=== PATIENT | male | born 1970 | race Caucasian/White ===

== ENCOUNTER → 2017-10-12 | Outpatient (CLI) | payer OTHER ==
[~2017-10-12] MED LIST: ADVIL200 M2 PO; AMITRIPTYLINE H25 M2 GT; AMOXICILLIN125 MG PO; AVAPRO 150 MG150 M1 PO; CARISOPRODOL 3350 MG PO; HYDROCHLOROTH12.5 MG PO; HYDROCHLOROTHIA50 MG PO; LISINOPRIL20 MG PO; LYRICA100 MG PO; METHADONE HCL 110 M1 PO; MOBIC15 MG PO; MOBIC7.5 MG PO; NAPROSYN500 MG PO; NEURONTIN 300300 M1 PO; NOHOMEMEDICATIONS; NORCO 5-325 TA1 EACH PO; NORCO 7.5-3251 EACH PO; NORFLEX100 MG PO; OXYCODONE-ACET1 EAC2 PO; OXYCONTIN10 MG PO; PENICILLIN V P500 MG PO; PENICILLIN VK500 MG PO; PERCOCET 10-321 EACH PO; PERCOCET 5-3251 EACH; PERCOCET 5-3251 EACH PO; ROBAXIN 750 MG750 M1 PO; ROBAXIN 750 MG750 MG PO; TRAMADOL 50 MG50 MG; TYLENOL PM PO; ULTRAM 50MG TAB50 MG PO; VALIUM5 MG PO
== END ==
LOC: RAD 10:48
DX: S92.311A Displaced fracture of first metatarsal bone, right foot, initial encounter for closed fracture (principal); S92.321A Displaced fracture of second metatarsal bone, right foot, initial encounter for closed fracture; M24.674 Ankylosis, right foot; M24.675 Ankylosis, left foot; X58.XXXA Exposure to other specified factors, initial encounter; Y93.89 Activity, other specified; Y92.89 Other specified places as the place of occurrence of the external cause; Y99.8 Other external cause status

== ENCOUNTER 2019-03-22 18:33 | Emergency (ER) | payer OTHER ==
[~2019-03-22] VITALS: Ht 177.8 cm; Wt 95.3 kg
[2019-03-22 19:15] VITALS: BP 150/104
[2019-03-22 19:32] LABS: ABSOLUTE NEUTROPHILS 3.1 thou/uL (1.4-8.2); BASOPHILS 0.6 % (0.0-2.0); HEMATOCRIT 42.9 % (42.0-52.0); HEMOGLOBIN 14.8 gm/dL (14.0-18.0); LYMPHOCYTES 23.7 % (24.0-44.0); MCHC 34.5 g/dL (28.0-37.0); MCV 92.8 fL (80.0-100.0); MONOCYTES 8.2 % (1.0-8.0); PLATELET COUNT 197 thou/uL (150-400); POLYS 63.5 % (36.0-66.0); RBC 4.62 mil/uL (4.50-6.00); RDW 13.8 % (10.5-14.5); WBC 4.8 thou/uL (4.0-11.0)
[2019-03-22 19:41] LABS: ANION GAP 10 mmol/L (7-16); BUN 18 mg/dL (7-18); CALCIUM 8.9 mg/dL (8.5-10.1); CHLORIDE 104 mmol/L (98-107); CO2 27 mmol/L (21-32); CREATININE 1.2 mg/dL (0.7-1.3); GLUCOSE 138 mg/dL (74-106); SODIUM 141 mmol/L (136-145)
[2019-03-22 19:50] LABS: TROPONIN-I <0.06 ng/mL (<0.06)
--- NOTE | 2019-03-23 08:21 | EKG ---
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: BALJIT : 1970 Requested By: Pablo Gleason Order Number: [id number] MD: Colin Riggs Measurements Intervals [place] Rate: 70 P: 47 MI: 160 QRS: 24 QRSD: 107 T: 34 QT: 431 QTc: 466 Interpretive Statements Sinus rhythm Normal tracing Compared to ECG 03/18/2009 23:03:05 Sinus tachycardia no longer present Electronically Signed On 03-23-2019 8:21:08 CDT by Colin Riggs [email or web address] ��������������������������������������������� <ELECTRONICALLY SIGNED> ���������������������������������������� By: Colin Riggs MD, [facility] ��������������������������������������������� 03/23/19 0821 1856 55 Colin Riggs MD, FACC /EPI
== END 2019-03-22 20:15 | disposition home or self-care (01) ==
LOC: ER 18:33
PROVIDERS: Emergency Medicine
DX: M94.0 Chondrocostal junction syndrome [Tietze] (principal); I10 Essential (primary) hypertension; G89.29 Other chronic pain; M54.9 Dorsalgia, unspecified; Z82.49 Family history of ischemic heart disease and other diseases of the circulatory system; Z95.0 Presence of cardiac pacemaker; Z88.6 Allergy status to analgesic agent